=== PATIENT | female | born 1975 | race African-American/Black ===

== ENCOUNTER 2023-02-25 10:36 | Emergency (ER) | payer MEDICAID, OTHER ==
[~2023-02-25] VITALS: Ht 162.6 cm; Wt 79.4 kg
[~2023-02-25 10:36] MED LIST: PRENATAL VIT
[2023-02-25 10:46] VITALS: BP 113/73; TEMP 98.4; O2SAT 98
[2023-02-25 10:50] VITALS: PULSE 86; RESP 20
== END 2023-02-25 13:25 | disposition home or self-care (01) ==
LOC: ER 10:36
DX: M79.601 Pain in right arm (principal); Z88.0 Allergy status to penicillin
CPT/HCPCS: 71045; 99283